=== PATIENT | male | born 1970 | race Caucasian/White ===

== ENCOUNTER 2019-04-10 19:26 | Emergency (ER) | payer BC ==
[2019-04-10 19:53] VITALS: BP 138/91
--- NOTE | 2019-04-10 19:58 | UC ---
Skin Complaint HPI - HPI Summary HPI Summary: 49 yo male presents with right middle finger swelling that has since improved. He tells me that he works with his hands a lot daily. Today was [place] pipes [place] Around 230 this afternoon pt developed swelling to his right middle finger that decreased his ROM. He denies specific injury. He rested and took a hot shower and his finger swelling improved and his pain decreased. - History of Current Complaint Chief Complaint: UCUpperExtremity Stated Complaint: swollen FINGER Hx Obtained From: Patient Onset/Duration: Sudden Onset Onset Severity: Mild Current Severity: Mild Pain Intensity: 2 Pain Scale Used: 0-10 Numeric - Allergy/Home Medications Allergies/Adverse Reactions: Allergies Allergy/AdvReac Type Severity Reaction Status Date / Time No Known Allergies Allergy Verified 04/10/19 19:49 Home Medications: Home Medications Cholecalciferol TAB* [Vitamin D TAB*] 1,000 unit PO DAILY 04/10/19 [History Confirmed 04/10/19] Krill Oil 500 mg PO DAILY 04/10/19 [History Confirmed 04/10/19] L.acidoph,Paracasei, B.lactis [Probiotic] 1 each PO DAILY 04/10/19 [History Confirmed 04/10/19] PMH/Surg Hx/FS Hx/Imm Hx - Additional Past Medical History Additional PMH: None - Surgical History Surgical History: Yes Surgery Procedure, Year, and Place: Appendectomy. Hiatal hernia repair - Family History Known Family History: Positive: Hypertension Negative: Cardiac Disease, Diabetes - Social History Occupation: Employed Full-time Lives: With Family Alcohol Use: Daily Alcohol Amount: beer Substance Use Type: None Smoking Status (MU): Current Every Day Smoker Type: Cigars Amount Used/How Often: couple a day Have You Smoked in the Last Year: Yes - Immunization History Most Recent Tetanus Shot: 10/12/15 Review of Systems All Other Systems Reviewed And Are Negative: Yes Constitutional: Positive: Negative Skin: Positive: Negative Respiratory: Positive: Negative Cardiovascular: Positive: Negative Neurovascular: Positive: Negative Musculoskeletal: Positive: Other: - Right middle finger Neurological: Positive: Negative Psychological: Positive: Negative Physical Exam - Summary Physical Exam Summary: GENERAL: NAD. WDWN. No pain distress. SKIN: No rashes, sores, lesions, or open wounds. CHEST: No accessory muscle use. Breathing comfortably and in no distress. CV: Pulses intact radial and ulnar. Cap refill <2seconds MSK: RIGHT MIDDLE FINGER: Mild edema about entire finger. No puncture wound, erythema, or open wound. FROM at MCP, PIP, and DIP. 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 NEURO: Alert. Sensations intact hand and all fingers. PSYCH: Age appropriate behavior. Triage Information Reviewed: Yes Vital Signs: Initial Vital Signs Temp 99.9 F 04/10/19 19:50 Pulse 88 04/10/19 19:50 Resp 18 04/10/19 19:50 BP 138/91 04/10/19 19:50 Pulse Ox 98 04/10/19 19:50 Vital Signs Reviewed: Yes Course/Dx - Course Course Of Treatment: I am unsure exactly why his finger was swollen earlier today, but he states his symptoms have significantly improved since that time. It could be due to a tendinitis or overuse injury from working [place]. Advised pt to monitor the area and return with any worsening symptoms. - Diagnoses Provider Diagnosis: Finger swelling Discharge - Sign-Out/Discharge Documenting (check all that apply): Patient Departure All imaging exams completed and their final reports reviewed: No Studies - Discharge Plan Condition: Stable Disposition: HOME Patient Education Materials: Swollen Joint (ED) Referrals: Sam Gaming MD [Primary Care Provider] - Additional Instructions: If you develop a fever, shortness of breath, chest pain, new or worsening symptoms - please call your PCP or go to the ED immediately. 1) Apply ice to your finger to reduce pain and swelling 2) Monitor the area for any increased pain/swelling/redness - if you develop these, please be rechecked - Billing Disposition and Condition Condition: STABLE Disposition: Home
== END 2019-04-10 20:19 | disposition home or self-care (01) ==
LOC: UCEAST 19:26
DX: R22.31 Localized swelling, mass and lump, right upper limb (principal); F17.210 Nicotine dependence, cigarettes, uncomplicated
CPT/HCPCS: 99211; G0463

== ENCOUNTER 2019-09-09 07:07 | Emergency (ER) | payer BC ==
[2019-09-09 07:19] VITALS: BP 145/99
--- NOTE | 2019-09-09 08:05 | UC ---
Lower Extremity/Ankle HPI - HPI Summary HPI Summary: 49-year-old male comes in with a chief complaint of left foot pain. 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 Pain is in the distal foot and the distal midfoot. Pain is worse with flexion extension of the toes and with bearing weight. It's better with rest ice elevation. of any weakness or numbness no complaint of any ankle injury. - History of Current Complaint Chief Complaint: UCLowerExtremity Stated Complaint: FOOT INJURY Time Seen by Provider: 09/09/19 07:11 Pain Intensity: 5 - Allergies/Home Medications Allergies/Adverse Reactions: Allergies Allergy/AdvReac Type Severity Reaction Status Date / Time No Known Allergies Allergy Verified 09/09/19 07:12 PMH/Surg Hx/FS Hx/Imm Hx Previously Healthy: Yes - Surgical History Surgical History: Yes Surgery Procedure, Year, and Place: Appendectomy. Hiatal hernia repair - Family History Known Family History: Positive: Hypertension Negative: Cardiac Disease, Diabetes - Social History Alcohol Use: Daily Alcohol Amount: a few beers Substance Use Type: None Smoking Status (MU): Current Every Day Smoker Type: Cigars Amount Used/How Often: couple a day Have You Smoked in the Last Year: Yes - Immunization History Most Recent Tetanus Shot: 10/12/15 Review of Systems All Other Systems Reviewed And Are Negative: Yes Constitutional: Positive: Negative Skin: Positive: Negative Eyes: Positive: Negative ENT: Positive: Negative Respiratory: Positive: Negative Cardiovascular: Positive: Negative Gastrointestinal: Positive: Negative Motor: Positive: Negative Neurovascular: Positive: Negative Musculoskeletal: Positive: Other: - SEE HPI Neurological: Positive: Negative Psychological: Positive: Negative Is Patient Immunocompromised?: No Physical Exam Triage Information Reviewed: Yes Appearance: Well-Appearing, No Pain Distress, Well-Nourished Vital Signs: Initial Vital Signs Temp 99.7 F 09/09/19 07:13 Pulse 81 09/09/19 07:13 Resp 16 09/09/19 07:13 BP 145/99 09/09/19 07:13 Pulse Ox 96 09/09/19 07:13 Vital Signs Reviewed: Yes Eye Exam: Normal Eyes: Positive: Conjunctiva Clear Neck: Positive: Supple Respiratory: Positive: No respiratory distress Musculoskeletal: Positive: Other: - Left foot is mildly tender to palpation of the distal mid foot and metatarsals. Normal capillary refill normal sensation and normal dorsalis pedis pulses. Ankle is nontender Achilles tendon is nontender and intact. Neurological: Positive: Alert Psychological: Positive: Age Appropriate Behavior Skin Exam: Normal Lower Extremity Course/Dx - Course Course Of Treatment: Global Account Executive: Macho Boswell Daniel, ([id number]) First Breaker Feeder: LEIGH ( [place]) Report Date: 09/09/2019 07:21:00 Report Status: Final ====== Start of Report Content Patient Name: KOFI ARAGON JR Medical Record# : [id number] Ordering Physician: Bharathi Mariscal MD Acct.#: [id number] : 1970 Age: 49 Sex: M Location: [facility] Exam Date: 720 ADM Status: REG ER Order Information: FOOT LEFT 3+ VWS Accession Number : [id number] CPT: 74472 HISTORY: pain s/p injury . COMPARISONS: None relevant available at the time of dictation. VIEWS: 3, Frontal, lateral, and oblique views of the left foot FINDINGS: BONE DENSITY: Normal. BONES: There is no displaced fracture. There are small posterior and plantar calcaneal enthesophytes. JOINTS: There is no arthropathy. ALIGNMENT: There is no dislocation. SOFT TISSUES: Unremarkable. OTHER FINDINGS: None. IMPRESSION: NO ACUTE OSSEOUS INJURY. IF SYMPTOMS PERSIST, RECOMMEND REPEAT IMAGING. <Electronically signed by Macho Boswell MD in OV> 09/09/19749 Dictated By: Macho Boswell MD Dictated Date/Time: 09/09/19749 Transcribed Date/Time: 09/09/190 Copy to: CC:Sam Gaming MD; Bharathi Mariscal MD Imaging - [facility] Imaging - [facility] Imaging - [facility] [address] [address] [place] [address] [place] [address] ph [phone]) ph ([phone]) ph ([phone]) End of Report Content ==== Discussed the x-rays with the patient. No fracture seen. Patient was placed in a cam boot by nursing in clinic patient neurovascular intact after placement a cam boot. Plan is ice anti-inflammatories rest as much as possible. Weightbearing as tolerated. Follow-up with orthopedics or sports medicine if not completely improved. - Differential Dx/Diagnosis Provider Diagnosis: Left foot pain Discharge ED - Sign-Out/Discharge Documenting (check all that apply): Patient Departure All imaging exams completed and their final reports reviewed: Yes - Discharge Plan Condition: Stable Disposition: HOME Patient Education Materials: Foot Sprain (ED) Referrals: Sam Gaming MD [Primary Care Provider] - [facility] [Provider Group] Bhavesh Mac MD [Medical Doctor] - Additional Instructions: FOLLOW UP WITH SPORTS MEDICINE OR ORTHOPEDICS IF NOT COMPLETELY IMPROVED. GET RECHECKED SOONER IF YOUR CONDITION WORSENS OR ANY QUESTIONS OR CONCERNS. - Billing Disposition and Condition Condition: STABLE Disposition: Home
== END 2019-09-09 08:05 | disposition home or self-care (01) ==
LOC: UCEAST 07:07
DX: M25.572 Pain in left ankle and joints of left foot (principal); F17.210 Nicotine dependence, cigarettes, uncomplicated
CPT/HCPCS: 99212; G0463